=== PATIENT | female | born 1990 | race Two or more races ===

== ENCOUNTER 2018-01-26 23:06 | Emergency (ER) | payer OTHER ==
[2018-01-27 04:41] VITALS: BP 106/71; PULSE 85
== END 2018-01-27 00:15 | disposition home or self-care (01) ==
LOC: H.EROB2 23:06
DX: O47.1 False labor at or after 37 completed weeks of gestation (principal); Z3A.38 38 weeks gestation of pregnancy; O26.93 Pregnancy related conditions, unspecified, third trimester; R10.2 Pelvic and perineal pain

== ENCOUNTER 2018-01-27 07:04 | Inpatient (IN) | payer OTHER ==
[2018-01-27 07:27] VITALS: BMI 34.8
[2018-01-27] MEDS: Lactated Ringer's 1,000 ML IV SCH ×4 (07:30→15:00)
[2018-01-27] MEDS ORDERED: Oxytocin 30 units/LR 500ML 30 U/500 ML BAG IV ONE ×2 (07:32→07:51)
--- NOTE | 2018-01-27 08:11 | OBADHP ---
Datetime: 01/27/2018 07:35 Admit Comment, IP Provider: 27 y/o F at 38+4 weeks GA with TEENA 02/06/18 by 1st trim US, presen t to ANAHY c/o uterine CTX's. CTX's are very painful and occurs every 5 minutes. FM present. Pt denies LOF or vaginal bleeding. All systems reviewed except as above. NKDA PN Clinic: [facility] Hx: PMHx: denied PSHx: denied FHx: NC SHx: No tobacco, alcohol or rec drugs. A/P 27 y/o with IUP at 38.4 weeks GA, in progressing to active labor. --Admit to L_D. --Initiate labor protocol. 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 Pelvic Type - PN: Adequate Extremities - PN: Normal Abdomen - PN: Normal Back - PN: Normal Lungs - PN: Normal Heart - PN: Normal Thyroid - PN: Normal Neurologic - PN: Normal HEENT - PN: Normal General - PN: Normal FHR - Baseline A Provider: 140 Contraction Comments Provider: ecery 4 minutes IP Hx Assessment: The History has been Reviewed and is Current Vital Signs Provider: Reviewed IP Chief Complaint: Uterine contractions NICHD Variability Prov Fetus A: Moderate 6-25bpm NICHD Accel Fetus A IP Provider: 15X15 FHR Category Provider Fetus A: Category I Dilatation, Provider: 4 Effacement, Provider: 70 Station, Provider: -2 Genitourinary Exam: Normal DTRs - PN: Not Done EGA AdmitDate IP: 38.4 IP Adm Impression: Term, intrauterine IP Admit Plan: Admit to unit; Initiate labor protocol
[2018-01-27 08:29] LABS: BASO # 0.1 K/uL (0.0-0.2); BASO % 0.4 % (0.0-2.0); EOS # 0.1 K/uL (0.0-0.7); EOS % 0.5 % (0.0-4.0); HEMOGLOBIN 12.6 g/dL (12.0-16.0); LYMPH # 2.5 K/uL (1.0-4.3); MEAN CELL VOLUME 92.7 fl (81.0-99.0); MEAN CORPUSCULAR HEMOGLOBIN 31.5 pg (27.0-31.0); MEAN CORPUSCULAR HGB CONC 33.9 g/dL (33.0-37.0); MEAN PLATELET VOLUME 7.9 fl (7.2-11.7); MONO # 0.8 K/uL (0.0-0.8); NEUT # 10.4 K/uL (1.8-7.0); NEUT % 75.1 % (50.0-75.0); NRBC % 0.2 % (0.0-0.0); RBC 4.01 Mil/uL (3.80-5.20); RED CELL DISTRIBUTION WIDTH 13.3 % (11.5-14.5); WHITE BLOOD COUNT 13.9 K/uL (4.8-10.8)
[2018-01-27] MEDS ORDERED: Fentanyl/Bupivacaine HCl 250 ML EPI ONE (09:30)
--- NOTE | 2018-01-27 10:14 | OBPN ---
Datetime: 01/27/2018 10:00 IP Progress Impression: Reassuring heart rate; Reactive non-stress test IP Informed Consent Obtain: Vaginal Delivery; Risks, Benefits and Alternatives Discussed IP Procedures: Artificial ROM IP Progress Plan: Continue present management; Augmentation Pool Provider: Positive Membranes, Provider: Ruptured Amniotic Fluid Color, Provider: Clear Contraction Comments Provider: 2-5 FHR - Baseline A Provider: 130 Presentation-Admit: Vertex IP Progress Note Comment: OB Hospitalist on-call Pt of Dr Post She was admitted this morning for early labor. She just rec'd epidural and feels better. A: IUP at term/latent phase of labor PLAN: discussion with pt about labor, medicatoins, augmentation, delivery and . AROM an d Pitocin to be started. Her questoins answered Dilatation, Provider: 3-4 Effacement, Provider: 75 Station, Provider: -2 Datetime: 01/27/2018 07:35 Vital Signs Provider: Reviewed NICHD Accel Fetus A IP Provider: 15X15 FHR Category Provider Fetus A: Category I NICHD Variability Prov Fetus A: Moderate 6-25bpm
[2018-01-27 10:48] VITALS: O2SAT 100
--- NOTE | 2018-01-27 13:22 | OBPN ---
Datetime: 01/27/2018 13:15 IP Progress Impression: Normal progression of labor; Reassuring heart rate IP Informed Consent Obtain: Vaginal Delivery; Risks, Benefits and Alternatives Discussed IP Progress Plan: Augmentation; Anticipate Vaginal Delivery Pool Provider: Positive Membranes, Provider: Ruptured Amniotic Fluid Color, Provider: Clear Contraction Comments Provider: 2-4m IP Progress Note Comment: She feels comfortable LAtent phase of labor cont pitocin augmentation - currently at 4miu/h FHR Category Provider Fetus A: Category I Dilatation, Provider: 4-5 Effacement, Provider: 90 Station, Provider: -1
[2018-01-27] MEDS ORDERED: Lidocaine 1% Inj (20ml) ONE (17:05)
[2018-01-27] MEDS ORDERED: Benzocaine/Menthol SPRAY TOP PRN (21:10)
[2018-01-27] MEDS ORDERED: Oxycodone/Acetaminophen 5/325 mg Tab PO PRN ×4 (21:10→23:35)
[2018-01-27] MEDS ORDERED: Lactated Ringer's 1,000 ML IV SCH (23:35)
[2018-01-28] MEDS: Levothyroxine 75 MCG TAB PO SCH (06:26)
[2018-01-28] MEDS: Benzocaine/Menthol SPRAY TOP PRN (06:28)
[2018-01-28] MEDS ORDERED: Levothyroxine 75 MCG TAB PO SCH (06:30)
[2018-01-28 07:04] LABS: HEMOGLOBIN 10.5 g/dL (12.0-16.0); MEAN CELL VOLUME 93.9 fl (81.0-99.0); RBC 3.39 Mil/uL (3.80-5.20); RED CELL DISTRIBUTION WIDTH 14.1 % (11.5-14.5); WHITE BLOOD COUNT 23.3 K/uL (4.8-10.8)
[2018-01-29] MEDS: Levothyroxine 75 MCG TAB PO SCH (07:13)
[2018-01-29] MEDS: Benzocaine/Menthol SPRAY TOP PRN (08:22)
--- NOTE | 2018-01-29 11:18 | OBPPN ---
Datetime: 01/29/2018 11:15 PP Pain Prov: Within normal limits PP Nausea Prov: Denies PP Flatus Prov: Yes PP Breasts Prov: Normal PP Heart Prov: Normal PP Lungs Prov: Normal PP Abdomen/Uterus Prov: Normal PP Lochia Prov: Normal PP Vulva/Perineum Prov: Normal PP CVA Tenderness Prov: Normal PP Extremities Prov: Normal PP Progress Prov: Normal PP Comments Phys Exam Prov: Abd: Soft, NT, BS - present Chest - Clinically Clear UT - Firm PP Impression Prov: Normal progression PP Plan Prov: Discharge PP Progress Note Prov: S/P , Clinically Stable, PPD #2 Plan: D/c Home. F/U with [facility] in 4-6 weeks Vital Signs Provider PP: Reviewed
--- NOTE | 2018-01-29 11:21 | OBDCSUM ---
Datetime: 01/29/2018 11:17 Discharged to, Provider: Home Follow up at, Provider: [facility] Disch Instr Activity: Normal activity Disch Instr Diet: Regular Discharge Instructions, Provider: Routine instructions given Discharge Diagnosis, Provider: Term Delivered Discharge Time: 01/29/2018 11:18 Follow up in weeks, Provider: 4-6 weeks Disch Referrals: None Contraception discussed, Prov: Yes Discharge Comment, Provider: S/P Uncomplicated , CLinically Stable. Discharge Diagnosis Prov Other: S/P Uncomplicated , CLinically Stable. Datetime: 01/27/2018 00:06 Disch Activity Restrictions: No lifting
[2018-01-29 18:26] VITALS: BP 105/66; PULSE 85; RESP 19; TEMP 98.6
--- NOTE | 2018-01-30 10:18 | OBPPN ---
Datetime: 01/28/2018 09:10 PP Pain Prov: Within normal limits PP Nausea Prov: Denies PP Flatus Prov: Yes PP Breasts Prov: Normal PP Heart Prov: Normal PP Lungs Prov: Normal PP Abdomen/Uterus Prov: Normal PP Lochia Prov: Normal PP Vulva/Perineum Prov: Normal PP CVA Tenderness Prov: Normal PP Extremities Prov: Normal PP Progress Prov: Normal PP Comments Phys Exam Prov: Abd: Soft,NT, BS- present UT - Firm, NT Vulva - swelling coming down. Pt could walk to bathroom. PP Impression Prov: Normal progression PP Plan Prov: Continue present management PP Impression Other Prov: S/P PP Progress Note Prov: S/P , PPD #1 Swollen Vulva - resolving Plan: Continue Post care. Encourage ambulation Ice packs to perineum. Vital Signs Provider PP: Reviewed
== END 2018-01-29 14:15 | disposition home or self-care (01) | DRG 775 ==
LOC: H.EROB2 07:04 → H.L&D 07:27 → H.OB/GYN 23:25
PROVIDERS: ADMIT Obstetrics & Gynecology; ATTEND Obstetrics & Gynecology
PROC: 10E0XZZ Delivery of Products of Conception, External Approach (ICD-10-PCS; principal; 2018-01-27)
PROC: 10907ZC Drainage of Amniotic Fluid, Therapeutic from Products of Conception, Via Natural or Artificial Opening (ICD-10-PCS; 2018-01-27)
PROC: 4A1HXCZ Monitoring of Products of Conception, Cardiac Rate, External Approach (ICD-10-PCS; 2018-01-27)
DX: O80 Encounter for full-term uncomplicated delivery (principal); Z37.0 Single live birth; Z3A.38 38 weeks gestation of pregnancy